=== PATIENT | male | born 1990 | race Caucasian/White ===

== ENCOUNTER 2017-11-13 02:54 | Emergency (ER) | payer BC ==
[~2017-11-13] VITALS: Ht 182.9 cm; Wt 120.2 kg
[~2017-11-13 02:54] MED LIST: CIPROFLOXACIN500 M1 PO; FLAGYL500 MG PO; NORCO 5-325 TA1 EACH PO
[2017-11-13] MEDS ORDERED: SYMBICORT160 MCG/4. (03:02)
[2017-11-13] MEDS ORDERED: FLONASE 0.05%50 MCG NASAL (03:24)
[2017-11-13] MEDS ORDERED: AUGMENTIN 500-1 EACH PO (03:24)
[2017-11-13 05:40] VITALS: BP 120/54
== END 2017-11-13 05:40 | disposition home or self-care (01) ==
LOC: M.ERS 02:54
DX: J32.9 Chronic sinusitis, unspecified (principal); F17.210 Nicotine dependence, cigarettes, uncomplicated